=== PATIENT | male | born 1990 | race Caucasian/White ===

== ENCOUNTER 2018-06-30 16:22 | Emergency (ER) | payer SELFPAY ==
[~2018-06-30] VITALS: Ht 182.9 cm; Wt 98.4 kg
[2018-06-30 16:40] VITALS: BP_SYST 154
--- NOTE | 2018-06-30 19:15 | NUR ---
Pt in [facility] bed 1 with c/o left knee pain and swelling. Pt states that he ran on uneven pavement on Saturday and twisted left knee. Swelling noted to lateral left knee, no deformity.
--- NOTE | 2018-06-30 19:30 | NUR ---
Dr. Storm at bedside.
[2018-06-30 20:25] VITALS: BP_SYST 128
--- NOTE | 2018-06-30 20:25 | NUR ---
Patient given written and verbal discharge instructions and verbalizes understanding. ER MD discussed with patient the results and treatment provided. Patient in stable condition. ID arm band removed. Rx of Motrin given. Patient educated on pain management and to follow up with PMD. Pain Scale 1/10. Opportunity for questions provided and answered. Medication side effect fact sheet provided.
== END 2018-06-30 20:25 | disposition home or self-care (01) ==
LOC: SED 16:22
DX: S83.92XA Sprain of unspecified site of left knee, initial encounter (principal); F17.210 Nicotine dependence, cigarettes, uncomplicated; R03.0 Elevated blood-pressure reading, without diagnosis of hypertension; X50.9XXA Other and unspecified overexertion or strenuous movements or postures, initial encounter; Y93.02 Activity, running; Y92.89 Other specified places as the place of occurrence of the external cause; Y99.8 Other external cause status
CPT/HCPCS: 73564; 99283

== ENCOUNTER 2020-09-21 13:13 | Emergency (ER) | payer OTHER ==
[~2020-09-21] VITALS: Ht 180.3 cm; Wt 92.5 kg
[2020-09-21 13:24] VITALS: BP_SYST 114
[2020-09-21 15:22] LABS: BASOPHILS % (AUTO) 0.4 % (0.0-2.0); EOSINOPHILS # (AUTO) 0.1 K/uL (0.0-0.4); EOSINOPHILS % (AUTO) 1.6 % (0.0-4.0); HEMATOCRIT 48.2 % (36-54); HEMOGLOBIN 15.6 g/dL (14.0-18.0); LYMPHOCYTES # (AUTO) 1.7 K/uL (1.0-5.5); LYMPHOCYTES % (AUTO) 21.4 % (20.5-51.5); MEAN CORPUSCULAR HEMOGLOBIN 29 pg (27-31); MEAN CORPUSCULAR HGB CONC 32 % (32-36); MEAN CORPUSCULAR VOLUME 91 fL (79.0-98.0); MONOCYTES # (AUTO) 0.5 K/uL (0.0-1.0); MONOCYTES % (AUTO) 6.9 % (1.7-9.3); NEUTROPHILS # (AUTO) 5.6 K/uL (1.8-7.7); NEUTROPHILS % (AUTO) 69.7 % (40.0-70.0); PLATELET COUNT (AUTO) 164 K/uL (130-430); RED BLOOD CELL COUNT(AUTO) 5.29 MIL/uL (4.2-6.2); RED CELL DISTRIBUTION WIDTH 14.2 % (9.0-15.0)
[2020-09-21 15:46] LABS: CALCIUM 8.9 mg/dL (8.4-11.0); CREATININE 1.02 mg/dL (0.55-1.30)
[2020-09-21 15:51] LABS: ALBUMIN 3.9 g/dL (3.4-4.8); TOTAL BILIRUBIN 0.6 mg/dL (0.0-1.0)
[2020-09-21 16:50] VITALS: BP_SYST 114
[2020-09-21 16:52] LABS: BILIRUBIN,URINE NEGATIVE (NEGATIVE); BLOOD, URINE NEGATIVE (NEGATIVE); CLARITY/URINE CLEAR (CLEAR); COLOR,URINE YELLOW (YELLOW); GLUCOSE,URINE NEGATIVE (NEGATIVE); KETONES,URINE 1+ (NEGATIVE); LEUKOCYTE ESTERASE ,URINE NEGATIVE (NEGATIVE); NITRITE, URINE NEGATIVE (NEGATIVE); PROTEIN URINE TRACE (NEGATIVE); UROBILINOGEN,URINE 0.2 (0.2-1.0)
[2020-09-21 17:35] LABS: BACTERIA,URINE FEW /HPF (None Seen); RBC,URINE NONE SEEN /HPF (0-3); WBC,URINE 0-3 /HPF (0-3)
[2020-09-21 17:36] LABS: COARSE GRANULAR CASTS,URINE 0-10 /LPF (None Seen); MUCUS,URINE 2+ /LPF (None Seen)
== END 2020-09-21 16:52 | disposition home or self-care (01) ==
LOC: SED 13:13
DX: K42.9 Umbilical hernia without obstruction or gangrene (principal)
CPT/HCPCS: 36415; 76376; 80053; 81000; 85025; 99284